=== PATIENT | female | born 1990 | race Caucasian/White ===

== ENCOUNTER 2024-03-01 16:28 | Emergency (ER) | payer OTHER ==
[~2024-03-01] VITALS: Ht 160 cm; Wt 100.0 kg
[2024-03-01] MEDS: HYDROCODONE/ACETAMINOPHEN 5-325 MG TABLET PO ONE (18:56)
[2024-03-01] MEDS: METHOCARBAMOL 500 MG TABLET PO ONE (18:57)
[2024-03-01] MEDS: KETOROLAC TROMETHAMINE 60 MG/2 ML VIAL IM ONE (18:57)
[2024-03-01] MEDS ORDERED: METH-659 PO (19:59)
[2024-03-01] MEDS ORDERED: IBUP-1554 PO (19:59)
[2024-03-01] MEDS ORDERED: HYDR-4062 PO (19:59)
[2024-03-01 20:34] VITALS: BP 143/70; PULSE 89; RESP 18; TEMP 97.9
== END 2024-03-01 20:48 | disposition home or self-care (01) ==
LOC: EMS 16:28
DX: S13.4XXA Sprain of ligaments of cervical spine, initial encounter (principal); Z98.890 Other specified postprocedural states; V49.88XA Car occupant (driver) (passenger) injured in other specified transport accidents, initial encounter; Y93.89 Activity, other specified; Y92.89 Other specified places as the place of occurrence of the external cause; Y99.8 Other external cause status
CPT/HCPCS: 99284; 71045; 72040; 72070; 72100; 96372; J1885